=== PATIENT | male | born 1950 | race Caucasian/White ===

== ENCOUNTER 2018-05-09 07:10 | Inpatient (IN) ==
[2018-05-03 11:45] LABS: Basophils # (Auto) 0 K/mcL (0.0-0.3); Basophils % (Auto) 0.4 % (0.0-2.0); Eosinophils # (Auto) 0.3 K/mcL (0.0-0.7); Eosinophils % (Auto) 2.9 % (0.0-7.0); Lymphocytes # (Auto) 1.8 K/mcL (1.5-4.8); Lymphocytes % (Auto) 20.5 % (15.5-49.0); Mean Cell Volume 96.1 fL (80.0-100.0); Mean Corpuscular HGB Conc 33.6 g/dL (31.0-36.0); Mean Corpuscular Hemoglobin 32.3 pg (26.0-34.0); Monocytes # (Auto) 0.8 K/mcL (0.1-0.9); Monocytes % (Auto) 9.2 % (1.0-12.0); Platelet Count 306 K/mcL (140-440); RBC 4.42 M/mcL (4.50-5.90); Red Cell Distribution Width 12.8 % (11.5-14.5)
[2018-05-03 12:01] LABS: Blood Urea Nitrogen 26 mg/dl (8-23)
[2018-05-03 12:59] LABS: Appearance,Urine CLEAR; Bilirubin,Urine NEG (NEG); Color,Urine YELLOW; Glucose,Urine (UA) NEGATIVE (NEG); Leukocyte Esterase,Urine NEG /uL (NEG); Protein,Urine NEG (NEG); Specific Gravity,Urine 1.017 (1.000-1.035); Urine Blood NEG mg/dL (<0.03); Urobilinogen,Urine NEG (NEG)
[~2018-05-09 07:10] MED LIST: 0.9 % SODIUM CHLORIDE 9 ML, KETOROLAC 30 MG, ROPIVACAINE HCL/PF 49.5 ML, EPINEPHrine 0.... IJ SCH; PREGABALIN 75 MG CAPSULE PO SCH; ceFAZolin 1 GM VIAL IV SCH; oxyCODONE 10 MG TAB.ER.12H PO SCH
[2018-05-09] MEDS ORDERED: ONDANSETRON 4 MG/2 ML VIAL IV ONE (09:20)
[2018-05-09] MEDS ORDERED: TRANEXAMIC ACID 1,000 MG/10 ML VIAL IV ONE (09:20)
[2018-05-09] MEDS ORDERED: KETAMINE 100 MG/ML ML IV ONE (09:20)
[2018-05-09] MEDS ORDERED: ROPIVACAINE HCL/PF 30 ML VIAL IJ ONE (09:20)
[2018-05-09] MEDS ORDERED: MIDAZOLAM 2 MG/2 ML VIAL IV ONE (09:20)
[2018-05-09] MEDS ORDERED: PROPOFOL 200 MG/20 ML VIAL IV ONE (09:20)
[2018-05-09] MEDS ORDERED: PHENYLEPHRINE 10 MG/ML VIAL IV ONE (09:20)
[2018-05-09] MEDS ORDERED: LIDOCAINE HCL/PF 100 MG/5 ML SYRINGE IV ONE (09:20)
[2018-05-09] MEDS ORDERED: GLYCOPYRROLATE 0.2 MG/ML VIAL IV ONE (09:20)
[2018-05-09] MEDS ORDERED: PROMETHAZINE 25 MG/ML VIAL IV PRN (10:34)
[2018-05-09] MEDS ORDERED: MEPERIDINE 25 MG/ML SYRINGE IV PRN (10:34)
[2018-05-09] MEDS ORDERED: fentaNYL 100 MCG/2 ML VIAL IV PRN (10:34)
[2018-05-09] MEDS ORDERED: METHOCARBAMOL 1,000 MG/10 ML VIAL IV PRN (10:34)
[2018-05-09] MEDS ORDERED: ACETAMINOPHEN 1,000 MG/100 ML BOTTLE IV ONE (10:34)
[2018-05-09] MEDS ORDERED: IPRATROPIUM/ALBUTEROL 3 ML AMPUL.NEB NEB PRN (10:34)
[2018-05-09] MEDS ORDERED: LACTATED RINGERS 1,000 ML IV SCH (10:45)
--- NOTE | 2018-05-09 10:57 | Brief Operative Note ---
Date of procedure: 05/09/18 Pre-op diagnosis: L knee DJD Post-op diagnosis: same Procedure: Left robotic assisted total knee arthroplasty Grafts/Implants: Yes ([place] triathlon 3 CR femur, 4 tibia, 9mm insert, 33 patella) Anesthesia: spinal, GLMA Findings: arthritis Complications: none Surgeon: Demetrius Chavez Real Estate Transaction Coordinator: Alfred Alves Estimated blood loss (cc): 30 Specimens Removed/Pathology: none sent Condition: stable Disposition: PACU
[2018-05-09] MEDS ORDERED: POLYETHYLENE GLYCOL 3350 17 GM PACKET PO PRN (10:58)
[2018-05-09] MEDS ORDERED: ONDANSETRON 4 MG/2 ML VIAL IV PRN (10:58)
[2018-05-09] MEDS ORDERED: BISACODYL 10 MG SUPP.RECT PR PRN (10:58)
[2018-05-09] MEDS ORDERED: BENZOCAINE/MENTHOL 1 LOZENGE PO PRN (10:58)
[2018-05-09] MEDS ORDERED: FLEETS ADULT ENEMA PR PRN (10:58)
[2018-05-09] MEDS ORDERED: HYDROmorphone 2 MG/ML VIAL IV PRN (10:58)
[2018-05-09] MEDS ORDERED: MAGNESIUM HYDROXIDE 30 ML ORAL.SUSP PO PRN (10:58)
[2018-05-09] MEDS ORDERED: TRANEXAMIC ACID 1,000 MG/10 ML VIAL IV SCH (10:58)
--- NOTE | 2018-05-09 11:47 | XRay Report ---
CLINICAL INFORMATION: Postsurgical follow-up TECHNIQUE: AP, lateral, patellar views COMPARISON: None. FINDINGS: Status post left total knee arthroplasty. Prosthetic components are in anatomic positions. There is postsurgical soft tissue and intra-articular gas. There are skin bobby anteriorly. IMPRESSION: Status post left total knee arthroplasty Interpreted and Authenticated by: Chetan Low 05/09/18
--- NOTE | 2018-05-09 12:10 | Operative Note ---
DATE OF OPERATION: 05/09/2018 PREOPERATIVE DIAGNOSIS: Left knee osteoarthritis. POSTOPERATIVE DIAGNOSIS: Left knee osteoarthritis. PROCEDURE PERFORMED: Left robotic-assisted total knee arthroplasty placing a [place] triathlon size 3 cruciate retaining femoral component, size 4 tibial baseplate, 9 mm X3 tibial insert with a 33 mm patellar button. SURGEON: Demetrius Chavez MD COMPARATIVE SOCIOLOGY PROFESSOR: Manolo Alves PA-C ANESTHESIA: Spinal plus general. DRAINS: None. SPECIMENS: Bone cuts, which were discarded. ESTIMATED BLOOD LOSS: 30 mL COMPLICATIONS: None. SPECIMENS: None. POSTOPERATIVE CONDITION: Stable. INDICATIONS FOR SURGERY: This is a 68-year-old male who has had progressive worsening left knee pain. Radiographs showed advanced arthrosis bone on bone. FINDINGS AT SURGERY: As above. Post implantation showed good limb alignment, patellar tracking, and joint stability. PROCEDURE IN DETAIL: The patient was seen preoperatively. Informed consent had been obtained after discussion of risks and benefits of surgery. Risks including, but not limited to, bleeding; infection, possibly requiring implant removal and prolonged IV antibiotics; injury to nerves, blood vessels, and other surrounding structures; anesthetic risks; incomplete or no relief of symptoms, stiffness; swelling; pain; instability; DVT and pulmonary embolus risks; and the possibility of needing further revision surgeries. He understood these risks and wished to proceed. Correct operative site was marked and the patient was taken to the operating room after spinal anesthesia was induced. The LMA general anesthesia was given and then the left lower extremity was carefully prepped and draped in normal sterile fashion. A timeout was performed verifying patient name, operative site, and plan. Esmarch was used to exsanguinate the extremity and tourniquet was inflated. Skin was covered with Ioban and then a midline incision was made with scalpel through skin and subcutaneous tissue. IrriSept was irrigated and then a medial parapatellar arthrotomy made. Subperiosteal exposure was done of the anterior medial tibia. We then placed our femoral and tibial checkpoints. Two stab incisions were made over the femur and two over the tibia and bicortical pins placed and the arrays were connected. We then did our hip center of rotation check. The green probe was used for medial and lateral malleoli marking and double checks of our femoral and tibial checkpoints. We then used the blue probe to do our mapping. We then removed osteophytes and checked our flexion, extension gaps. We then adjusted the implants and ended up downsizing to a 3 so as to not stuff the patellofemoral joint. We got 17 mm gaps medial and lateral in flexion and 17 mm in extension with a 19 mm laterally in extension. Overall, varus of the limb was 4 degrees and we did not feel it was good to go further than that. We then used the robotic assistance to make our bone cuts. The tibia was then externally rotated as bone coverage would allow, pinned into place, and prepared with the boss reamer and keel punch. Keeled tibial trial was placed. Femur was elevated. Curved osteotome was used to remove posterior osteophytes and a curved curet to pull them out. We did a final resection of menisci tendon and patella was prepared freehand technique used to resect about 10 mm of bone, sized this to a 33, which was medialized maximally and then a lateral facetectomy was performed. Patella tracking was good. The knee was at 1 degree hyperextension so we went ahead and removed trial components. Definitive implants were opened. IrriSept was irrigated, after a minute pulse lavage, and then CO2 was used to clean and dry the cut bone surfaces. We then used antibiotic cement with Palacos to cement the tibia followed by the femur. Excess cement had been removed and then the 9 insert was impacted after injecting pain cocktail in the posterior capsule. The patella was then cemented and held in full extension while cement hardened. We filled the joint with IrriSept and then injected pain cocktail in the pericapsular subcutaneous tissues. After cement had fully hardened we pulse lavaged copiously with saline and then removed our checkpoints and removed the pins for the arrays. The knee was placed in 45 degrees of flexion. Interrupted #2 FiberWire [id number] were used around the superior quadrant of the patella, interrupted #1 Vicryl [id number] around the inferior quadrant, running #1 Vicryl for patellar tendon and quad tendon. Final IrriSept irrigation was done, after a minute pulse was then 2-0 Monocryl for subcutaneous and bobby for skin. Xeroform and sterile dressing were applied. Tourniquet was released. The patient was awakened, extubated, and transferred to recovery in stable condition. YVONNE:savi Job ID: [id number] Doc ID: [id number] Demetrius Chavez MD
[2018-05-09] MEDS: 0.9 % SODIUM CHLORIDE 1,000 ML IV SCH ×2 (15:27→23:22)
[2018-05-09] MEDS: KETOROLAC 15 MG/ML VIAL IV SCH ×2 (15:29→20:44)
[2018-05-09] MEDS: 0.9 % SODIUM CHLORIDE 10 ML SYRINGE IV SCH ×2 (15:32→23:22)
[2018-05-09] MEDS: ceFAZolin 1 GM VIAL IV SCH (17:40)
[2018-05-09] MEDS: HYDROcodone/APAP 10/325MG TABLET PO PRN ×2 (20:40→23:25)
[2018-05-09] MEDS: DOCUSATE SODIUM 100 MG CAPSULE PO SCH (20:41)
[2018-05-09] MEDS: ASPIRIN 325 MG ENTERIC COATED TABLET PO SCH (20:44)
[2018-05-09] MEDS ORDERED: traZODone HCL 50 MG TABLET PO SCH (21:00)
[2018-05-09] MEDS ORDERED: SENNOSIDES 1 TABLET PO SCH (21:00)
[2018-05-10] MEDS: ceFAZolin 1 GM VIAL IV SCH (00:27)
[2018-05-10] MEDS: KETOROLAC 15 MG/ML VIAL IV SCH ×3 (00:27→11:55)
[2018-05-10] MEDS: HYDROcodone/APAP 10/325MG TABLET PO PRN ×2 (04:48→14:39)
[2018-05-10] MEDS: 0.9 % SODIUM CHLORIDE 10 ML SYRINGE IV SCH ×3 (04:52→14:38)
--- NOTE | 2018-05-10 07:33 | Discharge Summary ---
Ortho Discharge - TKA - Patient Instructions Diet: Regular Diet Activity: activity as tolerated Total Knee Protocol: For Total Knee: Start ROM NATALIE with stationary bike or rocking chair. Work on gaining full extension of knee. Posterior dislocation precautions provided. Hip abductor strengthening and gait training instructions provided. Apply Cryocuff as instructed. Dressing Care: Aquacel Ag - leave on for 5 days - Follow Up Plan Follow Up Appointments: Alfred Alves PA-C [Physician Sales Product Specialist] - Disposition: Home, Self-Care Prognosis: Good Rehab Potential: Good - Orders For Discharge Additional Discharge Orders: Physical Therapy at Discharge - TKA Location: None Selected Toilet Riser Discharge Order Location: None Selected Walker Location: None Selected
--- NOTE | 2018-05-10 07:54 | Orthopedic Progress Note ---
Subjective Patient information: Note initiated : 05/10/18 at 7:53 am Service Date, if different from initiated Date: [] Patient: Ata Monteiro 68 y/o M admitted on 05/09/18 for Left Total Knee Arthroplasty Cam. Chief Complaint: [] Principal diagnosis: s/p L total knee Interval history: no c/o pain Objective Vital signs: Vital Signs Temp Pulse Resp BP BP Pulse Ox 05/10/18 03:43 98.4 F 105 H 20 109/67 93 05/09/18 23:30 99.7 F H 93 H 20 145/76 91 05/09/18 20:00 98.5 F 89 22 162/75 93 05/09/18 17:28 97.4 F 82 12 135/79 93 05/09/18 14:22 63 136/71 99 05/09/18 13:51 67 133/71 98 05/09/18 13:21 65 126/73 93 05/09/18 13:06 62 118/73 91 05/09/18 12:51 60 121/73 95 05/09/18 12:36 69 119/70 95 05/09/18 11:58 97.2 F 76 12 113/70 93 05/09/18 11:53 79 17 97/76 93 05/09/18 11:43 80 18 119/59 96 05/09/18 11:38 85 16 120/63 97 05/09/18 11:28 86 12 115/52 97 05/09/18 11:23 89 14 111/54 100 05/09/18 11:18 74 8 L 84/53 100 05/09/18 11:13 97.5 F 66 10 L 99/50 98 Intake and Output 05/09/18 05/10/18 05/10/18 21:59 05:59 13:59 Intake Total 2079 200 / 200 383 / 383 Output Total 650 / 650 1650 / 1650 Balance 1430 / 1430 -1450 / -1450 383 / 383 Intake: IV 383 / 383 Oral 2079 200 / 200 Output: Void Amount 650 / 650 1650 / 1650 Other: Meal Dinner Percent of Meal Consumed 100% Feeding Ability Independent Urine Appearance Clear Clear Urine Color Straw Pale Urine Odor Normal Normal Weight 178 lb Intake & Output: Intake & Output 05/09/18 05/10/1818 21:59 05:59 13:59 Intake Total 2079 200 / 200 383 / 383 Output Total 650 / 650 1650 / 1650 Balance 1430 / 1430 -1450 / -1450 383 / 383 Weight 178 lb Intake: IV 383 / 383 Oral 2079 200 / 200 Output: Void Amount 650 / 650 1650 / 1650 Other: Meal Dinner Percent of Meal Consumed 100% Feeding Ability Independent Urine Appearance Clear Clear Urine Color Straw Pale Urine Odor Normal Normal Dressing: Yes clean, Yes dry, Yes intact Weight bearing status: as tolerated Neurological exam IM: Yes alert, Yes oriented X3, Yes neurovascular intact - Labs CBC & BMP: 05/03/18 10:13 05/03/18 10:13 Labs: 05/03/18 10:13 Hgb 14.3 Hct 42.5 Assessment and Plan (1) S/P total knee arthroplasty POD#1-stable -d/c home Status: Acute
[2018-05-10] MEDS: DOCUSATE SODIUM 100 MG CAPSULE PO SCH (08:36)
[2018-05-10] MEDS: ASPIRIN 325 MG ENTERIC COATED TABLET PO SCH (08:37)
[2018-05-10] MEDS ORDERED: VENLAFAXINE 150 MG CAP.XL.24H PO SCH (09:00)
[2018-05-10] MEDS ORDERED: LOSARTAN 50 MG TABLET PO SCH (09:00)
[2018-05-10] MEDS ORDERED: amLODIPine 5 MG TABLET PO SCH (09:00)
[2018-05-10] MEDS: 0.9 % SODIUM CHLORIDE 1,000 ML IV SCH (13:32)
== END 2018-05-10 14:40 | disposition home or self-care (01) | DRG 470 ==
LOC: MEDSUR 07:10
PROVIDERS: ADMIT Orthopaedic Surgery; ATTEND Orthopaedic Surgery

== ENCOUNTER 2020-08-13 05:07 | Inpatient (IN) ==
[2020-08-06 13:36] LABS: Appearance,Urine CLEAR (Clear); Bilirubin,Urine Negative (Negative); Color,Urine YELLOW; Culture Indicated,Urine No; Glucose,Urine (UA) Negative (Negative); Ketones,Urine Negative (Negative); Leukocyte Esterase,Urine Negative /ug (Negative); Nitrate,Urine Negative (Negative); Protein,Urine Negative (Negative); Specific Gravity,Urine 1.011 (1.000-1.035); Urine Blood Negative (Negative); Urobilinogen,Urine Negative
[2020-08-06 15:39] LABS: Basophils # (Auto) 0.03 K/mcL (0.00-0.20); Basophils % (Auto) 0.4 % (0.0-2.0); Eosinophils # (Auto) 0.19 K/mcL (0.00-0.70); Eosinophils % (Auto) 2.8 % (0.0-7.0); Hemoglobin 14.2 g/dL (13.5-16.5); Lymphocytes # (Auto) 2.06 K/mcL (1.50-4.80); Lymphocytes % (Auto) 30.3 % (15.0-49.0); Mean Cell Volume 99.8 fL (80.0-100.0); Mean Platelet Volume 9.3 fL (7.4-10.4); Monocytes # (Auto) 0.71 K/mcL (0.10-0.90); Monocytes % (Auto) 10.5 % (1.0-12.0); Platelet Count 311 K/mcL (140-440); RBC 4.31 M/mcL (4.50-5.90); Red Cell Distribution Width 12.4 % (11.5-14.5); WBC 6.8 K/mcL (4.5-11.0)
[2020-08-06 16:29] LABS: ALT/SGPT 18 U/L (<40); AST/SGOT 21 U/L (<40); Albumin 4.9 gm/dL (3.2-5.2); Alkaline Phosphatase 80 U/L (39-117); Bilirubin,Total 0.6 mg/dL (0.1-1.0); Blood Urea Nitrogen 25 mg/dL (8-23); Calcium 9.5 mg/dL (8.6-10.4); Carbon Dioxide 23 mmol/L (22-30); Chloride 101 mmol/L (96-108); Globulin 2.5 gm/dL (2.2-3.7); Glomerular Filtration Rate 50; Glucose 97 mg/dL (70-105)
[~2020-08-13 05:07] MED LIST changes: -0.9 % SODIUM CHLORIDE 9 ML, KETOROLAC 30 MG, ROPIVACAINE HCL/PF 49.5 ML, EPINEPHrine 0.... IJ SCH; +IPRATROPIUM/ALBUTEROL 3 ML AMPUL.NEB NEB PRN; -PREGABALIN 75 MG CAPSULE PO SCH; +SCOPOLAMINE 1 PATCH PATCH TOPICAL PRN; -ceFAZolin 1 GM VIAL IV SCH; -oxyCODONE 10 MG TAB.ER.12H PO SCH
[2020-08-13] MEDS ORDERED: ceFAZolin 2 GM in DEXTROSE 5% IN WATER 50 ML IV SCH (06:00)
[2020-08-13] MEDS ORDERED: fentaNYL 250 MCG/5 ML VIAL IV ONE (07:30)
[2020-08-13] MEDS ORDERED: HYDROmorphone 1 MG/ML SYRINGE ONE (07:30)
[2020-08-13] MEDS ORDERED: ROPIVACAINE HCL/PF 20 ML VIAL IJ ONE (07:30)
[2020-08-13] MEDS ORDERED: LIDOCAINE HCL/PF 100 MG/5 ML SYRINGE IV ONE (07:30)
[2020-08-13] MEDS ORDERED: DEXAMETHASONE 10 MG/ML VIAL ONE (07:30)
[2020-08-13] MEDS ORDERED: GLYCOPYRROLATE 0.2 MG/ML VIAL IV ONE (07:30)
[2020-08-13] MEDS ORDERED: PHENYLEPHRINE 10 MG/ML VIAL ONE (07:30)
[2020-08-13] MEDS ORDERED: KETAMINE 100 MG/ML ML ONE (07:30)
[2020-08-13] MEDS ORDERED: PROPOFOL 200 MG/20 ML VIAL IV ONE (07:30)
[2020-08-13] MEDS ORDERED: SUCCINYLCHOLINE 20 MG/ML ML IV ONE (07:30)
[2020-08-13] MEDS ORDERED: ONDANSETRON 4 MG/2 ML VIAL ONE (07:30)
[2020-08-13] MEDS ORDERED: TRANEXAMIC ACID 1,000 MG/10 ML VIAL IV ONE ×2 (07:30→09:34)
--- NOTE | 2020-08-13 07:33 | Brief Operative Note ---
Brief Operative Note Date of procedure: 08/13/20 Pre-op diagnosis: Right shoulder arthritis Post-op diagnosis: same Procedure: Total Shoulder arthroplasty, [place] Simplicity head, cortiloc glenoid Grafts/Implants: Yes Anesthesia: GETA Findings: OA as above Complications: none Surgeon: Madan Pal Heating And Refrigeration Inspector: Alfred Alves Estimated blood loss (cc): 250 Tourniquet Time (Minutes): 0 Specimens Removed/Pathology: none sent Condition: stable Disposition: PACU
[2020-08-13] MEDS ORDERED: GENTAMICIN SULFATE 800 MG/20 ML VIAL IR ONE (07:57)
[2020-08-13] MEDS ORDERED: FLUMAZENIL 0.1 MG/ML ML IV PRN (09:07)
[2020-08-13] MEDS ORDERED: BENZOCAINE/MENTHOL 1 LOZENGE PO PRN ×2 (09:07→09:34)
[2020-08-13] MEDS ORDERED: NALOXONE HCL 0.4 MG/ML VIAL IV PRN (09:07)
[2020-08-13] MEDS ORDERED: IPRATROPIUM/ALBUTEROL 3 ML AMPUL.NEB NEB PRN (09:07)
[2020-08-13] MEDS ORDERED: METHOCARBAMOL 1,000 MG/10 ML VIAL IV PRN ×2 (09:07→09:39)
[2020-08-13] MEDS ORDERED: LACTATED RINGERS 250 ML IV PRN (09:07)
[2020-08-13] MEDS ORDERED: ACETAMINOPHEN 1,000 MG/100 ML BAG IV ONE (09:07)
[2020-08-13] MEDS ORDERED: HYDROmorphone 0.5 MG/0.5 ML SYRINGE IV PRN (09:07)
[2020-08-13] MEDS ORDERED: LACTATED RINGERS 1,000 ML IV SCH (09:15)
--- NOTE | 2020-08-13 09:33 | Operative Note ---
Operative Note Operative Note: Pre-operative diagnosis: Right shoulder osteo-arthritis Postoperative diagnosis: Same Procedure: Right total shoulder arthroplasty, biceps tenodesis Implants:Rose Marie Krueger, [id number] head, size 2 nucleus, 35mm cortiloc glenoid Findings: as above dx Complications: nil Estimated Blood loss: 50cc. Assist:Manolo Alves who's assistance was critical for the safety and efficiency of the procedure. Clinical note: The patient continues to suffer from the above mentioned diagnosis. H&P: The patient was met outside the operating room and symptoms were reviewed and a physical exam performed. The patient demonstrated ongoing symptoms and signs as previously discussed. Risk versus benefits of the procedure were again discussed. Patient wished to proceed with the surgery aware and understanding of these risks. The operative site was marked. The patient was brought into the operative theater. They were positioned in the usual fashion in a semi-beachchair chair position, with all bony prominences and nerves carefully padded and protected. They were prepped and draped in the usual fashion showing the initials in the operative field. An incision was made over the deltopectoral interval. This was carried through skin and adipose tissue. Cephalic vein was seen and protected. This interval was carried deep through the clavipectoral fascia between the deltoid and pectoralis. Retractors were placed under the deltoid and beneath the conjoined tendon taking care not to stretch the musculocutaneous nerve. The subscapularis tendon was cleaned of remaining overlying tissue. The anterior circumflex vessels were cauterized. A subscap tenotomy was performed leaving approximately a 5 mm cuff of tendon laterally to repair. It was retracted with 2 Vicryl stay sutures. The inferior capsule was further released allowing the humeral head to be dislocated. The biceps tendon was released. Was used to resect the humeral head as per anatomic version. A pin was drilled in the center of the resected humeral head. The hole for the center nucleus was reamed over top. The impactor was hammered onto the humeral cut in the typical Nicole sign fashion. The trial nucleus and cut protector were then inserted. Retractors were then repositioned to expose the glenoid. 360 degree release was performed of the labrum. This allowed for good exposure of the entire glenoid. A guidepin was placed in the center of the glenoid taking care to assess proper version and inclination. A cannulated reamer was then placed over top of the center wire and the glenoid reamed down to good bleeding bone. This is did not require excessive bone to be removed and good bone remained in the glenoid vault. We then used the center peg drill. The glenoid peg guide was positioned over top to allow for subsequent drilling of the remaining holes. A trial glenoid was inserted to ensure we had achieved good fit with the above-mentioned size. Cement was prepared. Bone graft was added to the center quarter lock peg. Cement was then inserted into the 3 peripheral holes. The definitive glenoid component was positioned and held into position until the cement had hardened. The wound was irrigated with copious saline. We then turned our attention back to the humeral shaft. A trial component was positioned on these trial stem. Shoulder was reduced. The fit was assessed by attempting to subluxate the shoulder posterior by approximately 50%. This confirmed our trial to be of appropriate size. The trial was removed and the definitive implant above-mentioned size was inserted. The definitive implant was again trialed for size and deemed to be of appropriate fit. The wound was once again irrigated. The subscapularis was closed using #2 FiberWire first with interrupted José Manuel-Wilmer stitches followed by a running continuous stitch. The clavipectoral fascia was closed with a 2-0 Vicryl fo llowed by 3-0 Vicryl for the subcutaneous layers followed by bobby for the skin. Sterile dressing was applied. Patient's arm was fitted in a brace. Patient was brought to the recovery room in good condition. Patient is to remain nonweightbearing through that arm. They can remove the splint for gentle pendulum exercises and to wash. They are to follow-up in the clinic in 1 to 2 weeks time for wound check and staple removal. [Other, complications, unusual findings, etc]
[2020-08-13] MEDS ORDERED: ONDANSETRON 4 MG/2 ML VIAL IV PRN (09:34)
[2020-08-13] MEDS ORDERED: FLEETS ADULT ENEMA PR PRN (09:34)
[2020-08-13] MEDS ORDERED: MAGNESIUM HYDROXIDE 30 ML ORAL.SUSP PO PRN (09:34)
[2020-08-13] MEDS ORDERED: BISACODYL 10 MG SUPP.RECT PR PRN (09:34)
[2020-08-13] MEDS ORDERED: POLYETHYLENE GLYCOL 3350 17 GM PACKET PO PRN (09:34)
[2020-08-13] MEDS ORDERED: HYDROmorphone 1 MG/ML SYRINGE IV PRN (09:39)
[2020-08-13] MEDS ORDERED: ACETAMINOPHEN 325 MG TABLET PO PRN (09:39)
[2020-08-13] MEDS ORDERED: HYDROCODONE/APAP 7.5/325MG TABLET PO PRN (09:39)
--- NOTE | 2020-08-13 09:48 | Discharge Plan ---
Discharge Plan Patient/Caregiver Discharge Instructions Activity: non-weight bearing Diet: Regular Diet Activity Restrictions/Additional Instructions: NWB RIght arm. Keep in sling except to wash, gentle pendulums. No external rotation past neutral, no forward elevation past shoulder Prescriptions: New hydrocodone-acetaminophen [[place]] 7.5-325 mg tablet 1 - 2 tab PO Q4-6HP PRN (Reason: pain) Qty: 50 RF: 0 No Action losartan [Cozaar] 50 MG tablet 100 mg PO DAILY RF: 0 amlodipine [Norvasc] 2.5 MG tablet 5 mg PO DAILY RF: 0 ibuprofen 200 MG tablet 600 mg PO DAILYP PRN (Reason: Pain) RF: 0 pantoprazole 40 mg Tablet,Delayed Release (Dr/Ec) 40 mg PO QDAY RF: 0 escitalopram oxalate 20 mg Tablet 20 mg PO QDAY RF: 0 Follow Up Plan Follow up with: Madan Pal MD [Physician] - 08/26/20 11:00 am Patient Disposition: Home, Self-Care Discharge Orders: Discharge Order (Routine); Ordered 08/14/20 Ordered By: Madan Pal
[2020-08-13] MEDS ORDERED: IBUPROFEN 200 MG TABLET PO PRN ×2 (09:53→09:55)
[2020-08-13] MEDS: fentaNYL 100 MCG/2 ML VIAL IV PRN ×4 (10:15→10:35)
[2020-08-13] MEDS: KETOROLAC 30 MG/ML VIAL IV PRN ×2 (10:16→23:19)
--- NOTE | 2020-08-13 10:21 | XRay Report ---
INDICATION: Post-OP Total Shoulder TECHNIQUE: AP and Y views of the right shoulder COMPARISON: Preoperative right shoulder dated 07/06/2020 FINDINGS: Status post right shoulder arthroplasty. Alignment is anatomic. IMPRESSION: Right shoulder arthroplasty Interpreted and Authenticated by: Chetan Low 08/13/20
[2020-08-13] MEDS ORDERED: LORazepam 2 MG/ML VIAL IV ONE (10:48)
[2020-08-13] MEDS ORDERED: LORazepam 2 MG/ML VIAL ONE (10:54)
[2020-08-13] MEDS: LACTATED RINGERS 1,000 ML IV SCH ×2 (11:13→20:24)
[2020-08-13] MEDS: 0.9 % SODIUM CHLORIDE 10 ML SYRINGE IV SCH ×3 (14:11→23:15)
[2020-08-13] MEDS: ceFAZolin 1 GM VIAL IV SCH ×2 (14:46→23:15)
[2020-08-13] MEDS: DOCUSATE SODIUM 100 MG CAPSULE PO SCH (20:21)
[2020-08-13] MEDS ORDERED: SENNOSIDES 1 TABLET PO SCH (21:00)
[2020-08-14] MEDS: LACTATED RINGERS 1,000 ML IV SCH (04:45)
[2020-08-14] MEDS: 0.9 % SODIUM CHLORIDE 10 ML SYRINGE IV SCH (04:49)
[2020-08-14] MEDS ORDERED: PANTOPRAZOLE 40 MG TABLET PO SCH (09:00)
[2020-08-14] MEDS ORDERED: LOSARTAN 50 MG TABLET PO SCH (09:00)
[2020-08-14] MEDS ORDERED: amLODIPine 5 MG TABLET PO SCH (09:00)
[2020-08-14] MEDS ORDERED: ESCITALOPRAM 20 MG TABLET PO SCH (09:00)
[2020-08-14] MEDS: DOCUSATE SODIUM 100 MG CAPSULE PO SCH (10:02)
== END 2020-08-14 12:10 | disposition home or self-care (01) | DRG 483 ==
LOC: MEDSUR 05:07
PROVIDERS: ADMIT Orthopaedic Surgery; ATTEND Orthopaedic Surgery

== ENCOUNTER 2023-01-27 09:00 | Inpatient (IN) ==
[2023-01-18 11:42] LABS: Basophils # (Auto) 0.02 K/mcL (0.00-0.30); Basophils % (Auto) 0.3 % (0.0-2.0); Eosinophils # (Auto) 0.17 K/mcL (0.00-0.70); Eosinophils % (Auto) 2.4 % (0.0-7.0); Hematocrit 38.3 % (40.1-51.0); Hemoglobin 13.2 g/dL (13.7-17.5); Lymphocytes # (Auto) 1.58 K/mcL (1.50-4.80); Lymphocytes % (Auto) 22.4 % (15.5-49.0); Mean Cell Volume 94.6 fL (80.0-100.0); Mean Corpuscular HGB Conc 34.5 g/dL (31.0-36.0); Mean Platelet Volume 9.1 fL (8.8-12.5); Monocytes # (Auto) 0.89 K/mcL (0.10-0.90); Monocytes % (Auto) 12.6 % (1.0-12.0); Neutrophils % (Auto) 61.6 % (38.0-78.0); Platelet Count 294 K/mcL (140-440); RBC 4.05 M/mcL (4.63-6.08); Red Cell Distribution Width 11.9 % (11.5-14.5)
[2023-01-18 11:56] LABS: Appearance,Urine CLEAR (Clear); Bilirubin,Urine Negative (Negative); Color,Urine YELLOW; Culture Indicated,Urine No; Glucose,Urine (UA) Negative (Negative); Ketones,Urine Negative (Negative); Leukocyte Esterase,Urine Negative /uL (Negative); Nitrate,Urine Negative (Negative); Protein,Urine Negative (Negative); Specific Gravity,Urine 1.013 (1.000-1.035); Urine Blood Negative (Negative); Urobilinogen,Urine Negative
[2023-01-18 12:01] LABS: Blood Urea Nitrogen 23 mg/dL (8-23); Calcium 9.3 mg/dL (8.6-10.4); Carbon Dioxide 23 mmol/L (22-30); Chloride 98 mmol/L (96-108); Glomerular Filtration Rate 59; Glucose 97 mg/dL (70-105)
--- NOTE | 2023-01-19 07:03 | EKG ---
[facility] Test Date: 2023-01-18 Pat Name: Shilo Monteiro Department: RT Room: Gender: Male Contract Design Agent: : [id number] Requested By: Yung White Order Number: [id number] Reading MD: Eliseo Ledezma Measurements Intervals [place] Rate: 76 P: 49 VA: 178 QRS: 1 QRSD: 119 T: 22 QT: 370 QTc: 417 Interpretive Statements Sinus rhythm Nonspecific intraventricular conduction delay Electronically Signed On 01-19-2023 7:02:57 PDT by Eliseo Ledezma /store/[email or web address]/[id number]
[~2023-01-27 09:00] MED LIST changes: +ACETAMINOPHEN 500 MG TABLET PO SCH; +CELECOXIB 200 MG CAPSULE PO SCH; -IPRATROPIUM/ALBUTEROL 3 ML AMPUL.NEB NEB PRN; +PREGABALIN 75 MG CAPSULE PO SCH; -SCOPOLAMINE 1 PATCH PATCH TOPICAL PRN; +ceFAZolin 2 GM in DEXTROSE 5% IN WATER 50 ML IV SCH; +oxyCODONE 10 MG TAB.ER.12H PO SCH
[2023-01-27] MEDS ORDERED: SCOPOLAMINE 1 PATCH PATCH TOPICAL PRN (09:30)
[2023-01-27] MEDS ORDERED: IPRATROPIUM/ALBUTEROL 3 ML AMPUL.NEB NEB PRN ×2 (09:30→12:55)
[2023-01-27] MEDS ORDERED: ROPIVACAINE HCL/PF 20 ML VIAL IJ ONE (12:09)
[2023-01-27] MEDS ORDERED: fentaNYL 250 MCG/5 ML VIAL IV ONE (12:09)
[2023-01-27] MEDS ORDERED: LIDOCAINE HCL/PF 100 MG/5 ML SYRINGE IV ONE (12:09)
[2023-01-27] MEDS ORDERED: ePHEDrine 50 MG/5 ML SYRINGE (ANEST) IV ONE (12:09)
[2023-01-27] MEDS ORDERED: SUCCINYLCHOLINE 20 MG/ML ML IV ONE (12:09)
[2023-01-27] MEDS ORDERED: GLYCOPYRROLATE 0.2 MG/ML VIAL IV ONE (12:09)
[2023-01-27] MEDS ORDERED: DEXAMETHASONE 10 MG/ML VIAL ONE (12:09)
[2023-01-27] MEDS ORDERED: KETAMINE 50 MG/ML Syringe (ANEST) IV ONE (12:09)
[2023-01-27] MEDS ORDERED: PROPOFOL 200 MG/20 ML VIAL IV ONE (12:09)
[2023-01-27] MEDS ORDERED: SUGAMMADEX SODIUM 200 MG/2 ML VIAL IV ONE (12:09)
[2023-01-27] MEDS ORDERED: MAGNESIUM SULFATE 2 GM/50 ML BAG IV ONE (12:09)
[2023-01-27] MEDS ORDERED: ROCURONIUM 10 MG/ML ML IV ONE (12:09)
[2023-01-27] MEDS ORDERED: TRANEXAMIC ACID 1,000 MG/10 ML VIAL ONE (12:09)
[2023-01-27] MEDS ORDERED: PHENYLephrine 1 MG/10 ML SYRINGE (ANEST) ONE (12:09)
[2023-01-27] MEDS ORDERED: ONDANSETRON 4 MG/2 ML VIAL ONE (12:09)
--- NOTE | 2023-01-27 12:25 | Discharge Plan ---
Discharge Instructions - TSA Patient Instructions Total Shoulder Protocol: Leave immobilizer in place except for bathing and ROM. Abduction pillow. Continue to wear sling until seen by physician. [place] Pendulum : These exercises use momentum produced by your body to move your shoulder joint. Bend your knees and shift your weight to your front leg, then back, allowing your arm to swing in the same directions. Using the same technique, alternately shift your weight between your right and left legs, allowing your arm to swing from side to side. These exercises are also performed in counterclockwise and clockwise circular motions. Typically these exercises are performed several times per day, for a set number repetitions or minutes, such as 20 times in a row or 5 minutes at a time. Additional Dressing Instructions: Leave Zip line closure patch intact until followup --May shower at anytime. Discharge Plan Patient/Caregiver Discharge Instructions Diet: Regular Diet Prescriptions: New docusate sodium 100 mg capsule 100 mg PO BID Qty: 60 0RF hydrocodone-acetaminophen 10-325 mg tablet 1 - 2 tab PO Q4H PRN (Reason: pain) Qty: 75 0RF No Action amlodipine 5 mg tablet 5 mg PO QDAY atorvastatin 20 mg tablet 20 mg PO QDAY bupropion HCl 300 mg tablet extended release 24 hr 450 mg PO QAM omeprazole 20 mg capsule,delayed release(DR/EC) 20 mg PO QDAY acetaminophen [Tylenol Extra Strength] 500 mg tablet 500 mg PO QPM memantine 5 mg tablet 5 mg PO DAILY Patient Comments: [NO ORIGINAL SIG] ibuprofen 200 MG tablet 600 mg PO DAILYP PRN (Reason: Pain) Patient Comments: HOLDING FOR SURGERY naproxen 250 mg Tablet 250 mg PO BID PRN (Reason: Pain) losartan 100 mg tablet 100 mg PO DAILY Patient Comments: [NO ORIGINAL SIG] albuterol sulfate 2.5 mg /3 mL (0.083 %) Solution For Nebulization 2.5 mg INHALATION Q6H PRN (Reason: SOB) Other Ambulatory Orders: Brace/Splint (ONCE) Location: None Selected Ordered By: Clayton Little Physical Therapy DC - TSA (Routine) Location: None Selected Ordered By: Clayton Little Follow Up Plan Follow up with: Shakeel Mac MD [Physician] - 02/09/23 8:00 am Clayton Little PA-C [Physician Shipping Helper] - Patient Disposition: Home, Self-Care Prognosis: Good Rehab Potential: Good I certify that the patient requires SNF services: No Overall status at discharge: patient is progressing back to baseline Discharge Orders: Discharge Order (Routine); Ordered 01/27/23 Ordered By: Clayton Little
[2023-01-27] MEDS ORDERED: LABETALOL 5 MG/ML ML IV PRN (12:55)
[2023-01-27] MEDS ORDERED: METOPROLOL TARTRATE 5 MG/5 ML VIAL IV PRN (12:55)
[2023-01-27] MEDS ORDERED: ONDANSETRON 4 MG/2 ML VIAL IV PRN ×2 (12:55→17:26)
[2023-01-27] MEDS ORDERED: fentaNYL 100 MCG/2 ML VIAL IV PRN (12:55)
[2023-01-27] MEDS ORDERED: LACTATED RINGERS 250 ML IV PRN (12:55)
[2023-01-27] MEDS ORDERED: MEPERIDINE 25 MG/ML VIAL IV PRN (12:55)
[2023-01-27] MEDS ORDERED: BENZOCAINE/MENTHOL 1 LOZENGE PO PRN (12:55)
[2023-01-27] MEDS ORDERED: HYDROmorphone 0.5 MG/0.5 ML SYRINGE IV PRN (12:55)
[2023-01-27] MEDS ORDERED: NALOXONE HCL 0.4 MG/ML VIAL IV PRN (12:55)
[2023-01-27] MEDS ORDERED: METHOCARBAMOL 1,000 MG/10 ML VIAL IV PRN (12:55)
[2023-01-27] MEDS ORDERED: LACTATED RINGERS 1,000 ML IV SCH (13:00)
--- NOTE | 2023-01-27 13:23 | Brief Operative Note ---
Brief Operative Note Date of procedure: 01/27/23 Pre-op diagnosis: Left failed tsa Post-op diagnosis: same Procedure: Left tsa complete revision to reverse tsa Grafts/Implants: Yes Anesthesia: GETA Findings: failed glenoid Complications: none Surgeon: Shakeel Mac Resource Forester: Clayton Little Estimated blood loss (cc): 50 Specimens Removed/Pathology: none sent Condition: stable Disposition: PACU
[2023-01-27] MEDS ORDERED: HYDROmorphone 1 MG/ML SYRINGE IV PRN (13:37)
[2023-01-27] MEDS ORDERED: ACETAMINOPHEN 325 MG TABLET PO PRN (13:37)
[2023-01-27] MEDS ORDERED: HYDROcodone/APAP 10/325MG TABLET PO PRN (13:37)
[2023-01-27] MEDS ORDERED: IBUPROFEN TABLET (PP) 1 TABLET TABLET PO PRN (13:39)
[2023-01-27] MEDS ORDERED: NAPROXEN 250 MG TABLET PO PRN (13:39)
--- NOTE | 2023-01-27 14:08 | Operative Note ---
DATE OF OPERATION: 01/27/2023 PREOPERATIVE DIAGNOSIS: Left shoulder failed total shoulder. POSTOPERATIVE DIAGNOSIS: Left shoulder failed total shoulder. PROCEDURE: Left total shoulder revision from a total shoulder to a reverse total shoulder, removing all hardware and placing all new. SURGEON: Shakeel Mac M.D. ACOUSTICS TEACHER: Clayton Little PA-C. The assistance of the PA was required for the safe and efficient completion of the entire case. The expertise and technical skill of this provider was required throughout the case. The PA assisted with preoperative coordination, intraoperative retraction, wound closure, dressing and splint application, as well as postoperative documentation and care coordination. ANESTHESIA: General LMA anesthesia. COMPLICATIONS: None. IMPLANTS: Size 12 cementless stem, a metaglene with four screws and a glenosphere measuring 36 mm with 2 mm of offset, 2 mm of eccentricity. COMPLICATIONS: None. DISPOSITION: PACU. DESCRIPTION OF PROCEDURE: The patient was brought to the operating room, put to sleep with general LMA anesthesia. Once asleep, the patient had the left shoulder sterilely prepped and draped and confirmed as the operative site with a timeout. Ioban was placed over the skin. After being sterilely prepped, we did proceed with the surgery and preoperative antibiotics were confirmed to be given as well as tranexamic acid. We made an incision through the deltopectoral interval through a prior scar where he had a reverse total shoulder by Dr. Pal. We found the interval with the cephalic vein and the deltoid from the pectoralis major. A Gregory retractor was placed and then we placed a retractor at the conjoined tendon medially, and then released the subscap. This was still attached as well as the supraspinatus. This was removed along with several sutures. We then identified the humeral component, which the cap was removed with an osteotome. Using a guide, we cut the bony cut at 130 degrees of inclination and 20 degrees of retroversion. Using a slap hammer, we removed the proximal stem. Once this was removed, we then placed a protective plate and subluxed the humerus posteriorly. We identified the glenoid poly, performed a 360-degree capsular release around the glenoid, and then using an osteotome and rongeur we removed the glenoid poly component. We irrigated thoroughly. We then placed the pin centrally and reamed up to the size 40. We removed tissue inferiorly and some spurs. The glenoid appeared to be loose and generating some extra bony or heterotopic bone formation because of the motion of the component. After reaming up, we then placed a 40 mm central screw with a metaglene and after placing some bone graft in the peg holes from the prior component. We placed four screws around the rim. We placed a 32, a 36, and a 24 mm locking screw. We placed a 36 mm glenosphere with 2 mm of offset, 2 mm of eccentricity and then we went to the humeral side. We broached up to the size of 12 and then trialed the size 12 with a standard poly. This seemed to fit very nicely with full range of motion. It was very stable throughout the arc of motion without impingement. We irrigated once more. We placed the cementless stem size 12 along with a standard-thickness poly. This was tapped into place. We irrigated thoroughly after reducing and took the arm again through range of motion and it was stable. We released the remnants of the subscap with multiple sutures that were removed. We irrigated thoroughly, closed the deltopectoral interval with Stratafix as well as Stratafix for the skin and adhesive closure. The patient tolerated this well without complication. Blood loss was about 50 mL. A Donjoy sling was also fitted and given to the patient at the end of the case. RBH:godfrey Job ID: [id number] Doc ID: [id number] Shakeel Mac MD
--- NOTE | 2023-01-27 14:46 | XRay Report ---
CLINICAL INFORMATION: reverse tsa left COMPARISON: 12/13/2022 FINDINGS: Total shoulder prostheses is anatomically aligned no osseous abnormality. Soft tissue swelling seen in the expected. IMPRESSION: Total prosthesis in anatomic alignment Interpreted and Authenticated by: Chetan Juan 01/27/23
[2023-01-27] MEDS ORDERED: ceFAZolin 1 GM VIAL IV ONE (20:00)
[2023-01-27] MEDS ORDERED: ACETAMINOPHEN 500 MG TABLET PO SCH (21:00)
[2023-01-28] MEDS ORDERED: OMEPRAZOLE 20 MG CAPSULE PO SCH (07:30)
[2023-01-28] MEDS ORDERED: ATORVASTATIN 20 MG TABLET PO SCH (09:00)
[2023-01-28] MEDS ORDERED: buPROPion 150 MG TAB.XL.24H PO SCH (09:00)
[2023-01-28] MEDS ORDERED: amLODIPine 5 MG TABLET PO SCH (09:00)
[2023-01-28] MEDS ORDERED: LOSARTAN 50 MG TABLET PO SCH (09:00)
[2023-01-28] MEDS ORDERED: MEMANTINE 10 MG TABLET PO SCH (09:00)
== END 2023-01-28 15:40 | disposition home or self-care (01) | DRG 483 ==
LOC: MEDSUR 09:05
PROVIDERS: ADMIT Orthopaedic Surgery; ATTEND Physician Assistant Medical